=== PATIENT | female | born 1990 | race Asian ===

== ENCOUNTER 2019-06-10 11:35 | Day surgery (SDC) | payer OTHER ==
[2019-06-10] VITALS (10 sets, daily range): BP systolic 97–137; BP diastolic 55–95
[~2019-06-10] VITALS: Ht 152.4 cm; Wt 54.4 kg
[~2019-06-10 11:35] MED LIST: Proparacaine 0.5% Opth Soln 15ml LEFT EYE ONE
[2019-06-10] MEDS ORDERED: Proparacaine 0.5% Opth Soln 15ml ONE (11:48)
[2019-06-10] MEDS ORDERED: Tropicamide 1% Opth 15ml Soln ONE (11:48)
[2019-06-10] MEDS ORDERED: Cyclopentolate 1% Opth Sol 2ml ONE (11:48)
[2019-06-10] MEDS ORDERED: Phenylephrine 2.5% Op 2ml Soln ONE (11:48)
--- NOTE | 2019-06-10 12:04 | Pre-Procedure Note/Attestation ---
Pre-Procedure Note/Attestation Complete Prior to Procedure Planned Procedure: left Procedure Narrative: RRD OS s/f SB Indications for Procedure Pre-Operative Diagnosis: RRD OS Attestation I attest that I discussed the nature of the procedure; its benefits; risks and complications; and alternatives (and the risks and benefits of such alternatives ), prior to the procedure, with the patient (or the patient's legal sales representative sales manager). I attest that, if there was a reasonable possibility of needing a blood transfusion, the patient (or the patient's legal sales representative sales manager) was given the [facility] standardized written summary, pursuant to the [place] Blood Safety Act ([place] Health and Safety Code # 1645, as amended). I attest that I re-evaluated the patient just prior to the surgery and that there has been no change in the patient's H&P, except as documented below: Rowdy Vidales M.D., MD Jun 10, 2019 12:04
--- NOTE | 2019-06-10 12:04 | Operative Note - PDOC ---
Operative Note Operative Note Pre-op Diagnosis: RRD OS Procedure: Location: [facility] [place] Pre-operative Diagnosis: 1. Chronic retinal detachment, multiple holes, subretinal demarcation line, lattice degeneration, macula-sparing, LEFT EYE Post-operative Diagnosis: Same Procedure: Scleral buckle (41 band, 72 sleeve), cryopexy, vitreous aspiration and injection, LEFT EYE Post-op Diagnosis: Same Post-op Diagnosis: same as pre-op Surgeon: Sobeida Anesthesia: general Specimen: none Complications: none Condition: stable Estimated Blood Loss: minimal Drains: none Implant(s) used?: Yes Indications for Procedure Indications for the procedure: The patient has a macula threatening chronic retinal detachment and presents for surgery after review of the risks, benefits, alternative and signing informed consent into the medical chart. Description of Procedure Procedure performed: The patient was met in the pre-op area where informed consent was reviewed. The operative eye was verified, marked and dilated. The patient was transferred to the operative suite, where cardiopulmonary monitoring was established and general anesthesia was administered without complications. The eye was prepped and draped in sterile ophthalmic fashion. A lid speculum was placed. Under direct visualization, the conjunctiva was opened and the quadrants were dissected. The rectus muscles were isolated and hooked with silk sutures. The quadrants were inspected and no scleral defects were noted. The retina was visualized with indirect ophthalmoscopy and cryopexy was applied to the multiple holes within the large area of detachment over 3 clock hours inferotemporally. Other areas of lattice were noted and cryo was applied superonasal to an area with several holes. The scleral was marked to position the buckle to cover the breaks. The 41 band was encircled around the globe with its ends attached in the superonasal quadrant with the 72 sleeve. The buckle was sutured to the sclera with 5-0 nylon sutures at 5mm posterior to the muscle insertions in all 4 quadrants. The buckle was pulled flush against the globe, then 10mm beyond flush. The anterior chamber was tapped to reduce the intraocular pressure. Perfusion to the optic nerve was limited and tap was performed. The buckle position was confirmed and optic nerve was well perfused. The buckle ends were trimmed. The stay sutures were removed, the conjunctiva was repositioned and closed with 5-0 plain gut sutures. Subconjunctival vancomycin and dexamethasone were administered. The lid speculum was removed. The eye was cleaned of prep and drape. Atropine drop and Maxitrol ointment was applied. A pressure patch was placed. The patient was turned over to the anesthesia team, extubated and transferred in stable condition to the PACU. Rowdy Vidales M.D., MD Jun 10, 2019 12:04
[2019-06-10] MEDS: Phenylephrine 2.5% Op 2ml Soln LEFT EYE SCH ×3 (12:34→12:56)
[2019-06-10] MEDS: Tropicamide 1% Opth 15ml Soln LEFT EYE SCH ×3 (12:34→12:56)
[2019-06-10] MEDS: Cyclopentolate 1% Opth Sol 2ml LEFT EYE SCH ×3 (12:34→12:55)
[2019-06-10 12:52] LABS: BASOPHILS % (AUTO) 0.8 % (0.0-2.0); EOSINOPHILS % (AUTO) 1.2 % (0.0-3.0); HEMATOCRIT 45.9 % (37.0-47.0); HEMOGLOBIN 15.4 G/DL (12.0-16.0); LYMPHOCYTES % (AUTO) 34.6 % (20.0-45.0); MEAN CORPUSCULAR VOLUME 87 FL (80-99); MONOCYTES % (AUTO) 6.4 % (1.0-10.0); NEUTROPHILS % (AUTO) 56.9 % (45.0-75.0); PLATELET COUNT 242 K/UL (150-450); RED BLOOD COUNT 5.26 M/UL (4.20-5.40); RED CELL DISTRIBUTION WIDTH 11.2 % (11.6-14.8); WHITE BLOOD COUNT 8.3 K/UL (4.8-10.8)
[2019-06-10 12:58] LABS: ANION GAP 12 mmol/L (5-15); BLOOD UREA NITROGEN 19 mg/dL (7-18); CARBON DIOXIDE 26 MMOL/L (21-32); CHLORIDE 103 MMOL/L (98-107); CREATININE 0.7 MG/DL (0.55-1.30); POTASSIUM 4.1 MMOL/L (3.5-5.1); SODIUM 141 MMOL/L (136-145)
[2019-06-10] MEDS ORDERED: BSS 15ml BTL ONE ×2 (13:30→16:14)
[2019-06-10] MEDS ORDERED: Lidocaine 1% MPF 10mg/ml 5ml ONE (13:33)
[2019-06-10] MEDS ORDERED: Propofol 200mg/20ml IV ONE (13:33)
[2019-06-10] MEDS ORDERED: Midazolam 2mg/2ml Inj ONE (13:34)
[2019-06-10] MEDS ORDERED: fentaNYL 100 mcg/2 mL IV ONE (13:34)
--- NOTE | 2019-06-10 13:44 | Anethesia Preoperative Eval ---
Anesthesia Pre-op PMH/ROS General Date of Evaluation: Jun 10, 2019 Anesthesiologist: Jordi ASA Score: ASA 1 Mallampati Score Class I : Soft palate, uvula, fauces, pillars visible Class II: Soft palate, uvula, fauces visible Class III: Soft palate, base of uvula visible Class IV: Only hard plate visible Mallampati Classification: Class I Surgeon: Sobeida Diagnosis: Left retinal detachment Surgical Procedure: Left eye vitrectomy with scleral buckle Anesthesia History: none Family History: no anesthesia problems Allergies: Uncoded Allergies: EGGPLANT (Allergy, Mild, HIVES, 06/10/19) Medications: see eMAR Patient NPO?: Yes NPO Date: Jun 09, 2019 NPO Time: 00:00 Past Medical History Cardiovascular: Denies: HTN, CAD, VT, valve dz, arrhythmia, other Pulmonary: Denies: asthma, COPD, UMM, other Gastrointestinal/Genitourinary: Denies: GERD, CRI, ESRD, other Neurologic/Psychiatric: Denies: dementia, CVA, depression/anxiety, TIA, other Endocrine: Denies: DM, hypothyroidism, steroids, other HEENT: Denies: cataract (L), cataract (R), glaucoma, [place] (L), [place] (R), other Hematology/Immune: Denies: anemia, DVT, bleeding disorder, other Musculoskeletal/Integumentary: Denies: OA, RA, DJD, DDD, edema, other PSxH Narrative: Denies Anesthesia Pre-op Phys. Exam Physician Exam Last Vital Signs Date Time Temp Pulse Resp B/P (MAP) Pulse Ox O2 Delivery O2 Flow Rate FiO2 06/10/19 12:49 98.2 75 20 134/93 100 Room Air Constitutional: NAD Cardiovascular: RRR Respiratory: CTA Airway Exam Mallampati Score: Class I MO: full ROM: full Teeth: intact Anesthesia Pre-op A/P Labs Hematology Test 06/10/19 12:30 White Blood Count 8.3 K/UL (4.8-10.8) Red Blood Count 5.26 M/UL (4.20-5.40) Hemoglobin 15.4 G/DL (12.0-16.0) Hematocrit 45.9 % (37.0-47.0) Mean Corpuscular Volume 87 FL (80-99) Mean Corpuscular Hemoglobin 29.3 PG (27.0-31.0) Mean Corpuscular Hemoglobin Concent 33.6 G/DL (32.0-36.0) Red Cell Distribution Width 11.2 % (11.6-14.8) L Platelet Count 242 K/UL (150-450) Mean Platelet Volume 6.8 FL (6.5-10.1) Neutrophils (%) (Auto) 56.9 % (45.0-75.0) Lymphocytes (%) (Auto) 34.6 % (20.0-45.0) Monocytes (%) (Auto) 6.4 % (1.0-10.0) Eosinophils (%) (Auto) 1.2 % (0.0-3.0) Basophils (%) (Auto) 0.8 % (0.0-2.0) Coagulation Test 06/10/19 12:30 Prothrombin Time 10.3 SEC (9.30-11.50) Prothromb Time International Ratio 1.0 (0.9-1.1) Activated Partial Thromboplast Time 29 SEC (23-33) Chemistry Test 06/10/19 12:30 Sodium Level 141 MMOL/L (136-145) Potassium Level 4.1 MMOL/L (3.5-5.1) Chloride Level 103 MMOL/L (98-107) Carbon Dioxide Level 26 MMOL/L (21-32) Anion Gap 12 mmol/L (5-15) Blood Urea Nitrogen 19 mg/dL (7-18) H Creatinine 0.7 MG/DL (0.55-1.30) Estimat Glomerular Filtration Rate > 60 mL/min (>60) Glucose Level 85 MG/DL (74-106) Calcium Level 10.0 MG/DL (8.5-10.1) Urine Test Test 06/10/19 11:50 Urine HCG, Qualitative Negative (NEGATIVE) Risk Assessment & Plan Assessment: ASA I Plan: GA Status Change Before Surgery: No Pre-Antibiotics Drug: N/A Adelaide Canales MD Jun 10, 2019 13:44
[2019-06-10] MEDS ORDERED: LR 1000ml 1,000 ML IVLG SCH (13:46)
[2019-06-10] MEDS ORDERED: DiphenhydrAMINE 50mg/ml Inj IVP PRN (14:00)
[2019-06-10] MEDS ORDERED: Metoclopramide 10mg/2ml Inj IVP PRN (14:00)
[2019-06-10] MEDS ORDERED: Sterile Water Irrig 1000ml IRRIG ONE (14:00)
[2019-06-10] MEDS ORDERED: NS Irrig 1000ml ONE (14:00)
[2019-06-10] MEDS ORDERED: LORazepam Inj 2mg/ml 1ml IV PRN (14:00)
[2019-06-10] MEDS ORDERED: Midazolam 2mg/2ml Inj IVP PRN (14:00)
[2019-06-10] MEDS ORDERED: LR 1000ml ONE (14:00)
--- NOTE | 2019-06-10 15:00 | Pre-op HX & Phy Repo 2 SIG ---
DATE OF ADMISSION: 06/10/2019 PRESURGICAL INTERNAL MEDICINE HISTORY AND PHYSICAL REASON FOR EVALUATION: I was asked by Dr. Rowdy Vidales to see this 29-year-old female who going for elective surgery on the left eye. The patient has retinal detachment, left eye. Please see full Ophthalmology History and Physical by Dr. Rowdy Vidales. The patient was evaluated Outpatient Procedure Department [facility]. The patient is alert, well-developed, well-nourished, female in her 20s. No acute distress. PAST MEDICAL HISTORY/REVIEW OF SYSTEMS: Denies history of chest pain, palpitation, or heart attack. No history of stroke or seizures. Denies history of hypertension. The patient has a history of bronchitis last year, , and recovered. No history of peptic ulcer disease, heart burn, or constipation. No history of liver problem. No hepatitis. No kidney problem, renal failure, or dysuria. The patient denies history of thyroid problem or anemia. PAST SURGICAL HISTORY: None. FAMILY HISTORY: Mother and father has hypertension. ALLERGIES: To eggplants, develops itching and rashes. PRESENT MEDICATION: None. HABITS: No smoking. Occasional wine. No street drugs. PHYSICAL EXAMINATION: GENERAL: Alert, well-developed, well-nourished female, in her 20s, no acute distress. VITAL SIGNS: Blood pressure 134/90, temperature 98.2, pulse 75 and regular, respirations 20, O2 saturation 100% on room air. SKIN: Clear, warm, dry. No rashes. No ulcers. LYMPH NODES: Not enlarged. HEENT: Head normocephalic, atraumatic. Ears, clear. Eyes, full description per Dr. Rowdy Vidales. Mouth, clear and moist. No dentures. NECK: Supple. No jugular vein distention. Carotids artery +2. Trachea midline. CHEST: No deformity or asymmetry. LUNGS: Clear to auscultation or percussion. HEART: Sinus rhythm. No ectopy. No murmur. No S3, S4. ABDOMEN: Soft, benign. Liver and spleen not enlarged. No rebound. EXTREMITIES: No edema. No varicose veins. No calf tenderness. GENITOURINARY TRACT: No dysuria. No CVA tenderness. NEUROLOGIC: No tremor. No nystagmus. No asymmetry. EKG due to age and no previous history of heart problem. The patient did not eat or drink from 8 p.m. yesterday. LABORATORY DATA: Pending. IMPRESSION: 1. Detachment of the retina, left eye. 2. Hypertension, untreated. PLAN: Pars plana vitrectomy, scleral buckle, indirect laser, per Dr. Rowdy Vidales. CONCLUSION: The patient is a 29-year-old female with no previous history of diabetes or heart problem. The patient has elevated diastolic blood pressure, which was controlled with low-sodium diet and most likely medication. The patient did not eat or drink from yesterday. The patient's condition optimized for surgery. Thank you very much, Dr. Vidales, for privilege to participate in presurgical care of this interesting patient. Anaya Laureano M.D. DR: KARRIE JOB#: [id number] CC:
[2019-06-10] MEDS ORDERED: acetaZOLAMIDE 500mg Inj ONE (15:24)
--- NOTE | 2019-06-10 15:51 | 48 Hour Post Anesthesia Eval ---
Post Anesthesia Evaluation Procedure: Left eye vitrectomy, scleral buckle Date of Evaluation: Jun 10, 2019 Airway: patent Nausea: No Vomiting: No Pain Intensity: 0 Hydration Status: adequate Cardiopulmonary Status: at baseline Mental Status/LOC: patient returned to baseline Post-Anesthesia Complications: 0 Follow-up care needed: ready to discharge Adelaide Canales MD Jun 10, 2019 15:51
--- NOTE | 2019-06-10 15:53 | Immediate Post-Op Evaluation ---
Immediate Post-Op Evalulation Immediate Post-Op Evalulation Procedure: Left eye vitrectomy, scleral buckle Date of Evaluation: Jun 10, 2019 Time of Evaluation: 15:54 IV Fluids: 400 Blood Products: 0 Estimated Blood Loss: min Urinary Output: 0 Blood Pressure Systolic: 98 Blood Pressure Diastolic: 52 Pulse Rate: 60 Respiratory Rate: 16 O2 Sat by Pulse Oximetry: 100 Temperature (Fahrenheit): 97.3 Pain Score (1-10): 0 Nausea: No Vomiting: No Complications 0 Patient Status: awake, reacts, patent, none Hydration Status: adequate Drug: N/A Adelaide Canales MD Jun 10, 2019 15:53
[2019-06-10] MEDS ORDERED: Polysporin Opth Oint 3.5gm ONE (16:13)
[2019-06-10] MEDS ORDERED: Goniotaire 2.5% Opth Soln - 15ml ONE (16:13)
[2019-06-10] MEDS ORDERED: Pred Forte 1% Opth Susp 1ml ONE (16:13)
[2019-06-10] MEDS ORDERED: Dexamethasone 4mg/ml vial ONE (16:14)
[2019-06-10] MEDS ORDERED: Bupivacaine 0.75% 30ml vial INJ ONE (16:17)
[2019-06-10] MEDS ORDERED: Lidocaine 2% MPF 5ml Vial INJ ONE (16:17)
== END 2019-06-10 17:30 | disposition home or self-care (01) ==
LOC: SUR 11:35
DX: H33.22 Serous retinal detachment, left eye (principal); I10 Essential (primary) hypertension; Z91.018 Allergy to other foods
CPT/HCPCS: 36415; 67108; 80048; 81025; 85025; 85610; 85730; J1100; J1120; J2250; J2704; J2765; J3010; J3370; J3490; J7120; 94003; 94150